=== PATIENT | female | born 1990 | race Caucasian/White ===

== ENCOUNTER 2019-08-28 10:58 | Emergency (ER) | payer BC ==
--- OUTSIDE RECORDS SUMMARY | 2019-08-28 11:02 | XMS REPORT ---
:1990 [facility] Address [address] [place] [address] Care Team Providers Name Role Phone Unavailable Unavailable Unavailable Payers Payer Name Policy Type Policy Number Effective Date Expiration Date Problems This patient has no known problems. Allergies, Adverse Reactions, Alerts Allergy Name Allergy Status Severity Reaction(s) Onset Inactive Treating Comments Type Date Date Clinician amoxicillin DA Active [place] 2016-08 00:00:0 0 Medications This patient has no known medications. Results Test Description Test Time Test Comments Text Results Atomic Results Result Comments HCG SERUM 2019-04-11 19:48:00 Test Item Value Reference Range Comments HCG SERUM (test code=HCG) 2458 INTERPRETATION:VALUES BETWEEN 15-20 milliInternational units/mL NEED TO BERETESTED WITHIN 48 HOURS. All units for these ranges are in milliInternationalunits/mL0-1 WK AFTER CONCEPTION 0-50 1-2 WKS AFTER CONCEPTION 40-3002-3 WKS AFTER CONCEPTION 100-1,0003-4 WKS AFTER CONCEPTION 500-6,0001-2 MONTHS AFTER CONCEPTION 5,000-200,0002-3 MONTHS AFTER CONCEPTION 10,000-100,0002ND TRIMESTER 3,000-50,0003RD TRIMESTER 1,000-50,000 SPECIMENS WITH AN HCG LEVEL FROM 0-6 milliInternationalunits/mL SHOULD BE CONSIDERED NEGATIVE BLOOD UREA [id number] 19:31:00 Test Item Value Reference Range Comments BLOOD UREA NITROGEN (test code=BUN) 9 mg/dL 7-18 [id number] 19:31:00 Test Item Value Reference Range Comments CREATININE (test code=CREAT) 0.8 mg/dL 0.5-1.0 [id number] 19:31:00 Test Item Value Reference Range Comments SGOT/AST (test code=AST) 77 units/L 15-37 [id number] 19:31:00 Test Item Value Reference Range Comments SGPT/ALT (test code=ALT) 83 units/L 12-78 CBC W/AUTO [id number] 18:17:00 Test Item Value Reference Range Comments WHITE BLOOD CELL (test code=WBC) 7.0 K/mm3 6.6-12.1 RED BLOOD CELL (test code=RBC) 4.85 M/mm3 3.45-5.01 HEMOGLOBIN (test code=HGB) 14.9 g/dL 10.7-13.9 HEMATOCRIT (test code=HCT) 44.1 % 32.1-42.1 MEAN CELL VOLUME (test code=MCV) 91 fL 84.1-94.8 MEAN CELL HGB (test code=MCH) 30.7 pg 27-35 MEAN CELL HGB CONCETRATION (test code=MCHC) 33.8 gm/dL 32.2-34.1 RED CELL DISTRIBUTION WIDTH (test code=RDW) 12.9 % 12.4-16.5 PLATELET COUNT (test code=PLT) 208 K/mm3 133-385 MEAN PLATELET VOLUME (test code=MPV) 10.3 fl 9.1-12.7 NEUTROPHIL % (test code=NT%) 64.2 % 56.5-79.4 LYMPHOCYTE % (test code=LY%) 27.1 % 14.3-34.3 MONOCYTE % (test code=MO%) 7.5 % 5.1-10.4 EOSINOPHIL % (test code=EO%) 0.4 % 0.1-3.0 BASOPHIL % (test code=BA%) 0.4 % 0.1-1.0 NEUTROPHIL # (test code=NT#) 4.5 K/mm3 LYMPHOCYTE # (test code=LY#) 1.9 K/mm3 MONOCYTE # (test code=MO#) 0.5 K/mm3 EOSINOPHIL # (test code=EO#) 0.03 K/mm3 BASOPHIL # (test code=BA#) 0.0 K/mm3 RBC MORPHOLOGY REQUIRED (test code=RBCM) NORMAL NORMAL PLATELET MORPHOLOGY REQUIRED (test code=PLTMR) NORMAL NORMAL - US PREG EVAL 1ST [id number] 12:02:00 Patient Name: STONE JORDAN Unit No: [id number] EXAMS: CPT CODE: [id number] US PREG EVAL 1ST TRIMTR 35857 EXAMINATION: 1st trimester pelvic ultrasound 04/05/2019. CLINICAL HISTORY: , rising beta hCG, concern for ectopic. COMPARISON: None. FINDINGS: Transabdominal and transvaginal pelvic ultrasound was performed. The uterus measures 70 x 35 x 42 mm. The endometrium measures 12 mm in AP diameter. Within the endometrium, there is a 7 x 6 x 6 mm anechoic structure which may represent a gestational sac. However, there is no evidence of yolk sac or embryo for confirmation. No uterine leiomyomata are evident. The ovaries are within normal limitsin size and sonographic appearance. The right ovary measures 23 x 13 x 18 mm and the left ovary measures 22 x 16 x 19 mm. There is a left ovarian corpus luteum which measures 13 x 10 x 9 mm.There is no evidence of extraovarian adnexal mass. No free fluid is present in the pelvis.IMPRESSION: 1. 6 mm possible gestational sac in the endometrium. However, there is no evidence of yolk sac or embryo for confirmation. The appearance is discordant from the patient's menstrual dates of 8 weeks 5 days. There is no sonographic evidence of ectopic gestation. Correlation with beta-hCG levels is recommended with further follow-up/management as clinically indicated. at 1202 Reported and signed by: Brigette Castillo MD CC: Elvia Vela MD Technologist: Sarahi Mir RDMS Probe: Trnscrbd D/ (1202) Brennon Orig Print D/T: S: 04/05/2019 (1205) [facility] NAME: STONE JORDAN Radiology Department PHYS: Nkechi Miranda [address] : 1990 AGE: 28 SEX: F [place], [place] [address] LOC: AishwaryaRAD PHONE #: [phone] EXAM DATE: 04/05/2019 STATUS: REG CLI FAX #: [phone] RAD NO: Page 1 Signed Report Patient Name: STONE JORDAN Unit No: [id number] EXAMS: CPT CODE: [id number] US PREG EVAL 1ST TRIMTR 42094 < Continued> [facility] NAME: STONE JORDAN Radiology Department PHYS: Nkechi Miranda [address] : 1990 AGE: 28 SEX: [place] [address] LOC: AishwaryaRAD PHONE #: [phone] EXAM DATE: 04/05/2019 STATUS: REG CLI FAX #: [phone] RAD NO: Page 2 Signed Report- US PREG UT [id number] 12:02:00 Patient Name: STONE JORDAN Unit No: [id number] EXAMS: CPT CODE: [id number] US PREG UT TRANSVAGINAL 23019 EXAMINATION: 1st trimester pelvic ultrasound 04/05/2019. CLINICAL HISTORY: , rising beta hCG, concern for ectopic. COMPARISON: None. FINDINGS: Transabdominal and transvaginal pelvic ultrasound was performed. The uterus measures 70 x 35 x 42 mm. The endometrium measures 12 mm in AP diameter. Within the endometrium, there is a 7 x 6 x 6 mm anechoic structure which may represent a gestational sac. However, there is no evidence of yolk sac or embryo for confirmation. No uterine leiomyomata are evident. The ovaries are within normal limitsin size and sonographic appearance. The right ovary measures 23 x 13 x 18 mm and the left ovary measures 22 x 16 x 19 mm. There is a left ovarian corpus luteum which measures 13 x 10 x 9 mm.There is no evidence of extraovarian adnexal mass. No free fluid is present in the pelvis.IMPRESSION: 1. 6 mm possible gestational sac in the endometrium. However, there is no evidence of yolk sac or embryo for confirmation. The appearance is discordant from the patient's menstrual dates of 8 weeks 5 days. There is no sonographic evidence of ectopic gestation. Correlation with beta-hCG levels is recommended with further follow-up/management as clinically indicated. at 1202 Reported and signed by: Brigette Castillo MD CC: Elvia Vela MD Technologist: Sarahi Mir, [facility] Probe: [id number] Trnscrbd D/ (1202) [email or web address] Orig Print D/T: S: 04/05/2019 (1205) [facility] NAME: STONE JORDAN Radiology Department PHYS: Nkechi Miranda [address] : 1990 AGE: 28 SEX: F [place] [address] LOC: AishwaryaRAD PHONE #: [phone] EXAM DATE: 04/05/2019 STATUS: REG CLI FAX #: [phone] RAD NO: Page 1 Signed Report Patient Name: STONE JORDAN Unit No: [id number] EXAMS: CPT CODE: [id number] PREG UT TRANSVAGINAL 50912 < Continued> [facility] NAME: JULIANSTONE Radiology Department PHYS: Nkechi Miranda [address] : 1990 AGE: 28 SEX: F [place] [address] LOC: [place].RAD PHONE #: [phone] EXAM DATE: 04/05/2019 STATUS: REG CLI FAX #: [phone] RAD NO: Page 2 Signed Report
[2019-08-28] MEDS ORDERED: LORAZEPAM 1 MG TABLET ONE (11:36)
[2019-08-28 11:39] LABS: Absolute Lymphocytes (CBC) 1.7 K/uL (0.7-4.9); Basophils % 0.2 % (0-1.3); Hematocrit 44.1 % (36.0-45.0); Lymphocytes % 27.5 % (15.3-44.8); MPV 8.5 fL (7.6-11.3); RBC Red Blood Cell Count 4.63 M/uL (3.86-4.86)
[2019-08-28 11:44] LABS: Protime INR 0.97
--- NOTE | 2019-08-28 11:50 | RAD REPORT ---
EXAM DESCRIPTION: [place] Single View08/28/2019 11:39 am CLINICAL HISTORY: Chest pain COMPARISON: none FINDINGS: The lungs appear clear of acute infiltrate. The heart is normal size IMPRESSION: No acute abnormalities displayed
[2019-08-28 12:06] LABS: ALT/SGPT 69 U/L (12-78); AST/SGOT 102 U/L (15-37); Albumin 4.6 g/dL (3.4-5.0); Alkaline Phosphatase 69 U/L (45-117); BUN Blood Urea Nitrogen 8 mg/dL (7-18); Bicarbonate 24 mmol/L (21-32); Bilirubin Direct 0.2 mg/dL (0-0.2); Bilirubin Total 0.6 mg/dL (0.2-1.0); Glucose Level 89 mg/dL (74-106); NT PRO-BNP 33 pg/mL (<125); Potassium 3.4 mmol/L (3.5-5.1); Protein, Total 8.2 g/dL (6.4-8.2); Sodium Level 138 mmol/L (136-145); Troponin (Emerg Dept Use Only) < 0.02 ng/mL (0.0-0.045)
[2019-08-28 12:08] LABS: Magnesium 1.3 mg/dL (1.8-2.4)
[2019-08-28] MEDS ORDERED: HYDROCODONE/APAP 7.5/325 MG TAB ONE (12:18)
[2019-08-28 13:01] LABS: Urine Blood NEGATIVE (NEG); Urine Glucose NEGATIVE (NEG); Urine Protein NEGATIVE (NEG); Urine Specific Gravity 1.015 (1.005-1.030)
--- NOTE | 2019-08-28 14:52 | EKG ---
Test Date: 2019-08-28 Test Time: 11:13:57 Transmitter Engineer: JOSE J MEASUREMENT RESULTS: Intervals: Rate: 81 CT: 144 QRSD: 82 QT: 406 QTc: 471 [place]: P: 54 CT: 144 QRS: -26 T: 30 INTERPRETIVE STATEMENTS: Normal sinus rhythm Possible Anterior infarct, age undetermined ST & T wave abnormality, consider lateral ischemia Abnormal ECG No previous ECG available for comparison Electronically Signed On 08-28-19 14:51:31 TRAVEL REGISTERED NURSE ONCOLOGY by Brandon Doyle
--- NOTE | 2019-08-28 16:15 | ER ---
Nurse's Notes [facility] Name: Dorothea Aguilar Age: 28 yrs Sex: Female : 1990 Arrival Date: 08/28/2019 Time: 10:59 Bed 15 Private MD: Diagnosis: Chest pain, unspecified Presentation: 08/28 11:08 Presenting complaint: Patient states: Sudden onset of CP, SOB and shakiness just prior ss to arrival. Pt reports she was feeling fine this morning. Began taking Cefuroxime 3 days ago for UTI. Transition of care: patient was not received from another setting of care. Onset of symptoms was August 28, 2019. Risk Assessment: Do you want to hurt yourself or someone else? Patient reports no desire to harm self or others. Initial Sepsis Screen: Does the patient meet any 2 criteria? No. Patient's initial sepsis screen is negative. Does the patient have a suspected source of infection? No. Patient's initial sepsis screen is negative. Care prior to arrival: None. 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 - Social history:: Smoking status: Patient denies any tobacco usage or history of. Patient/guardian denies using alcohol, street drugs, The patient lives with family. - Ebola Screening: : Patient denies exposure to infectious person Patient denies travel to an Ebola-affected area in the 21 days before illness onset. - Family history:: not pertinent. - Hospitalizations: : No recent hospitalization is reported. Screenin:15 Abuse screen: Denies threats or abuse. Denies injuries from another. Nutritional ca1 screening: No deficits noted. Tuberculosis screening: No symptoms or risk factors identified. Fall Risk IV access (20 points). Assessment: 11:15 General: Appears in no apparent distress. comfortable, Behavior is calm, cooperative, ca1 appropriate for age. Pain: Complains of pain in anterior aspect of left upper chest and mid-sternal area Pain does not radiate. Pain currently is 6 out of 10 on a pain scale. Quality of pain is described as pressure, Pain began 30 min ago. Is continuous. Neuro: Level of Consciousness is awake, alert, obeys commands, Oriented to person, place, time, situation, Appropriate for age. Cardiovascular: Heart tones S1 S2 present Capillary refill < 3 seconds Rhythm is sinus rhythm. Cardiovascular: Reports lightheadedness. Respiratory: Reports shortness of breath Airway is patent Respiratory effort is even, unlabored, Respiratory pattern is regular, symmetrical, Breath sounds are clear bilaterally. Denies cough. GI: Abdomen is flat, non-distended, Bowel sounds present X 4 quads. Abd is soft and non tender X 4 quads. : No deficits noted. No signs and/or symptoms were reported regarding the genitourinary system. EENT: No deficits noted. No signs and/or symptoms were reported regarding the EENT system. Derm: Skin is intact, is healthy with good turgor, Skin is pink, warm \T\ dry. Musculoskeletal: Circulation, motion, and sensation intact. Capillary refill < 3 seconds, Range of motion: intact in all extremities. 12:15 Reassessment: Patient appears in no apparent distress at this time. No changes from ca1 previously documented assessment. Patient and/or family updated on plan of care and expected duration. Pain level reassessed. Patient is alert, oriented x 3, equal unlabored respirations, skin warm/dry/pink. 12:51 Reassessment: Patient appears in no apparent distress at this time. Patient and/or ca1 family updated on plan of care and expected duration. Pain level reassessed. Patient is alert, oriented x 3, equal unlabored respirations, skin warm/dry/pink. For repeat trop and EKG at 1530 Patient states symptoms have improved. 13:52 Reassessment: Patient appears in no apparent distress at this time. Patient is alert, ca1 oriented x 3, equal unlabored respirations, skin warm/dry/pink. 14:48 Reassessment: Patient appears in no apparent distress at this time. Patient is alert, ca1 oriented x 3, equal unlabored respirations, skin warm/dry/pink. 15:50 Reassessment: Patient appears in no apparent distress at this time. Patient is alert, ca1 oriented x 3, equal unlabored respirations, skin warm/dry/pink. Vital Signs: 11:13 BP 149 / 109; Pulse 83; Resp 16; Temp 97.6(TE); Pulse Ox 100% on R/A; Weight 62.14 kg; ss Height 5 ft. 2 in. (157.48 cm); Pain 5/10; 12:51 BP 142 / 100; Pulse 84; Resp 17; Pulse Ox 100% on R/A; ca1 13:45 BP 144 / 109; Pulse 63; Resp 14 S; Pulse Ox 100% on R/A; ca1 14:48 BP 111 / 84; Pulse 80; Resp 14 S; Pulse Ox 99% on R/A; ca1 15:50 BP 122 / 94; Pulse 89; Resp 17 S; Pulse Ox 100% on R/A; ca1 11:13 Body Mass Index 25.06 (62.14 kg, 157.48 cm) ss ED Course: 10:59 Patient arrived in ED. ds1 11:02 Abeba Starr, TAB is Primary Nurse. ca1 11:02 Arpita Celis MD is Attending Physician. ma2 11:10 Triage completed. ss 11:13 Arm band placed on right wrist. ss 11:15 Patient has correct armband on for positive identification. Placed in gown. Bed in low ca1 position. Call light in reach. Side rails up X 1. quality assurance monitor final on. Pulse ox on. NIBP on. Warm blanket given. 11:22 No provider procedures requiring assistance completed. Initial lab(s) drawn, by me, ca1 sent to lab. Inserted saline lock: 22 gauge in right antecubital area, using aseptic technique. Blood collected. Patient maintains SpO2 saturation greater than 95% on room air. 11:29 EKG done, by repair technician. reviewed by Arpita Celis MD. at1 11:39 XRAY Chest (1 view) In Process Unspecified. EDMS 15:34 Repeat lab(s) drawn. by me, sent to lab. ca1 15:48 EKG done, by repair technician. reviewed by Arpita Celis MD. at1 16:34 IV discontinued, intact, bleeding controlled, No redness/swelling at site. Pressure ca1 dressing applied. Administered Medications: 11:35 Drug: Ativan 1 mg Route: PO; ca1 12:13 Follow up: Response: No adverse reaction; Anxiety decreased ca1 12:05 Drug: [place] (7.5 mg-325 mg) 1 tabs {Note: RASS - 0.} Route: PO; ca1 08/29 13:00 Follow up: Response: No adverse reaction; Pain is decreased; RASS: Alert and Calm (0) ca1 08/28 12:22 Not Given (Duplicate Order): [place] (7.5 mg-325 mg) 2 tabs PO once; RASS on ADMIN: ca1 Combtv4, Very Agttd3, Agttd2, Rstlss1, AlertClm0, Drwsy-1, Lt Sdtn-2, Mod Sdtn-3, Dp Sdtn-4, UnArsble-5 Outcome: 16:13 Discharge ordered by MD. lomax 16:34 Discharged to home ambulatory, with significant other. ca1 16:34 Condition: stable 16:34 Discharge instructions given to patient, Instructed on discharge instructions, follow up and referral plans. no drinking with medication, no driving heavy equipment, medication usage, Demonstrated understanding of instructions, follow-up care, medications, Prescriptions given X 1. 16:35 Patient left the ED. ca1 Signatures: Dispatcher [employer] [facility] Center[facility]am[facility] ds1 Ceci Montano RN RN ss Malika Mcpherson, quantitative consultant EKG Tat1 Arpita Celis MD MD ma2 Abeba Starr RN RN ca1 Corrections: (The following items were deleted from the chart) 12: 12:05 [place] (7.5 mg-325 mg) 2 tabs PO ca1 ca1
--- NOTE | 2019-08-28 16:15 | EDPHYS ---
Physician Documentation [facility] Name: Dorothea Aguilar Age: 28 yrs Sex: Female : 1990 Arrival Date: 08/28/2019 Time: 10:59 Bed 15 Private MD: ED Physician Arpita Celis HPI: 08/28 13:05 This 28 yrs old Female presents to ER via Ambulatory with complaints of Chest ma2 Pain. 13:05 The patient or guardian reports chest pain that is located primarily in the substernal ma2 area. The pain does not radiate. Associated signs and symptoms: Pertinent negatives: abdominal pain, dizziness, lower extremity pain, lightheadedness. The chest pain is described as a heaviness. Severity of pain: At its worst the pain was moderate in the emergency department the pain is unchanged. The patient has not experienced similar symptoms in the past. 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 - Social history:: Smoking status: Patient denies any tobacco usage or history of. Patient/guardian denies using alcohol, street drugs, The patient lives with family. - Ebola Screening: : Patient denies exposure to infectious person Patient denies travel to an Ebola-affected area in the 21 days before illness onset. - Family history:: not pertinent. - Hospitalizations: : No recent hospitalization is reported. ROS: 13:05 Constitutional: Negative for fever, chills, and weight loss. ma2 13:05 All other systems are negative. Exam: 13:05 Constitutional: This is a well developed, well nourished patient who is awake, alert, ma2 and in no acute distress. Chest/axilla: Normal chest wall appearance and motion. Nontender with no deformity. No lesions are appreciated. Cardiovascular: Regular rate and rhythm with a normal S1 and S2. No gallops, murmurs, or rubs. Normal PMI, no JVD. No pulse deficits. Respiratory: Lungs have equal breath sounds bilaterally, clear to auscultation and percussion. No rales, rhonchi or wheezes noted. No increased work of breathing, no retractions or nasal flaring. Abdomen/GI: Soft, non-tender, with normal bowel sounds. No distension or tympany. No guarding or rebound. No evidence of tenderness throughout. Back: No spinal tenderness. No costovertebral tenderness. Full range of motion. Skin: Warm, dry with normal turgor. Normal color with no rashes, no lesions, and no evidence of cellulitis. MS/ Extremity: Pulses equal, no cyanosis. Neurovascular intact. Full, normal range of motion. Neuro: Awake and alert, GCS 15, oriented to person, place, time, and situation. Cranial nerves II-XII grossly intact. Motor strength 5/5 in all extremities. Sensory grossly intact. Cerebellar exam normal. Normal gait. Vital Signs: 11:13 BP 149 / 109; Pulse 83; Resp 16; Temp 97.6(TE); Pulse Ox 100% on R/A; Weight 62.14 kg; ss Height 5 ft. 2 in. (157.48 cm); Pain 5/10; 12:51 BP 142 / 100; Pulse 84; Resp 17; Pulse Ox 100% on R/A; ca1 13:45 BP 144 / 109; Pulse 63; Resp 14 S; Pulse Ox 100% on R/A; ca1 14:48 BP 111 / 84; Pulse 80; Resp 14 S; Pulse Ox 99% on R/A; ca1 15:50 BP 122 / 94; Pulse 89; Resp 17 S; Pulse Ox 100% on R/A; ca1 11:13 Body Mass Index 25.06 (62.14 kg, 157.48 cm) MDM: 11:02 Patient medically screened. ma2 13:05 Differential diagnosis: chest wall pain, gastritis, gastroesophageal reflux disease ma2 (GERD), unstable angina. MARKOS Risk Score: TOTAL SCORE = 0. Data reviewed: vital signs, nurses notes. Counseling: I had a detailed discussion with the patient and/or guardian regarding: the historical points, exam findings, and any diagnostic results supporting the discharge/admit diagnosis, the presence of at least one elevated blood pressure reading (>120/80) during this emergency department visit, the need for outpatient follow up. Response to treatment: the patient's symptoms have markedly improved after treatment. 08/28 11:02 Order name: Basic Metabolic Panel; Complete Time: 12:12 ms2 08/28 11:02 Order name: CBC with Diff; Complete Time: 12:08 ms08/28 11:02 Order name: LFT's; Complete Time: 12:12 ms08/28 11:02 Order name: Magnesium; Complete Time: 12:12 ms2 08/28 11:02 Order name: NT PRO-BNP; Complete Time: 12:12 ms08/28 11:02 Order name: PT-INR; Complete Time: 12:08 ms2 08/28 11:02 Order name: Troponin (emerg Dept Use Only); Complete Time: 12:12 ma2 08/28 11:02 Order name: XRAY Chest (1 view); Complete Time: 12:08 [facility] 08/28 12:43 Order name: Troponin (emerg Dept Use Only): DUE 1530; Complete Time: 16:12 bp 08/28 12:57 Order name: Urine Dipstick--Ancillary (enter results); Complete Time: 13:04 bd 08/28 12:57 Order name: Urine --Ancillary (enter results); Complete Time: 13:04 bd 08/28 11:02 Order name: EKG; Complete Time: 11:04 ms2 08/28 11:02 Order name: Cardiac monitoring; Complete Time: 11:24 ms2 08/28 11:02 Order name: EKG - Nurse/Tech; Complete Time: 11:29 08/28 11:02 Order name: IV Saline Lock; Complete Time: 11:24 ms2 08/28 11:02 Order name: Labs collected and sent; Complete Time: 11:24 ms2 08/28 11:02 Order name: O2 Per Protocol; Complete Time: 11:24 ms2 08/28 11:02 Order name: O2 Sat Monitoring; Complete Time: 11:24 ms2 08/28 12:43 Order name: EKG: DUE 1530; Complete Time: 12:43 bp 08/28 12:43 Order name: EKG - Nurse/Tech: DUE 1530; Complete Time: 15:44 bp Administered Medications: 11:35 Drug: Ativan 1 mg Route: PO; ca1 12:13 Follow up: Response: No adverse reaction; Anxiety decreased ca1 12:05 Drug: [place] (7.5 mg-325 mg) 1 tabs {Note: RASS - 0.} Route: PO; ca1 08/29 13:00 Follow up: Response: No adverse reaction; Pain is decreased; RASS: Alert and Calm (0) ca1 08/28 12:22 Not Given (Duplicate Order): [place] (7.5 mg-325 mg) 2 tabs PO once; RASS on ADMIN: ca1 Combtv4, Very Agttd3, Agttd2, Rstlss1, AlertClm0, Drwsy-1, Lt Sdtn-2, Mod Sdtn-3, Dp Sdtn-4, UnArsble-5 Disposition: 08/28/19 16:13 Discharged to Home. Impression: Chest pain, unspecified. - Condition is Stable. - Prescriptions for Tylenol- Codeine #3 300-30 mg Oral Tablet - take 2 tablet by ORAL route every 6 hours As needed; 30 tablet. - Medication Reconciliation Form, Thank You Letter, Antibiotic Education, Prescription Opioid Use, Work release form form. - Follow up: Private Physician; When: Tomorrow; Reason: Continuance of care. Signatures: Dispatcher [employer] EDMS Ceci Montano RN RN ss Ron Moreland RN RN bp Arpita Celis MD MD [facility] Abeba Starr RN RN ca1 Corrections: (The following items were deleted from the chart) 12:44 12:43 TROPONIN (EMERG DEPT USE ONLY)+C.LAB.BRZ ordered. EDNH EDMS 14:35 14:32 EKG - Nurse/Tech ordered. [email or web address] 16:35 16:13 08/28/2019 16:13 Discharged to Home. Impression: Chest pain, unspecified. ca1 Condition is Stable. Prescriptions for Tylenol-Codeine #3 300-30 mg Oral Tablet - take 2 tablet by ORAL route every 6 hours As needed; 30 tablet. and Forms are Medication Reconciliation Form, Thank You Letter, Antibiotic Education, Prescription Opioid Use. Follow up: Private Physician; When: Tomorrow; Reason: Continuance of care. dami
--- NOTE | 2019-08-28 16:37 | EKG ---
Test Date: 2019-08-28 Test Time: 15:40:45 Emergency Department Director: JOSE J MEASUREMENT RESULTS: Intervals: Rate: 78 WI: 156 QRSD: 84 QT: 374 QTc: 426 [place]: P: 48 WI: 156 QRS: -45 T: 1 INTERPRETIVE STATEMENTS: Normal sinus rhythm Left axis deviation Anterior infarct, age undetermined Abnormal ECG Compared to ECG 08/28/2019 11:13:57 Left-axis deviation now present ST (T wave) deviation no longer present Possible ischemia no longer present Myocardial infarct finding still present Electronically Signed On 08-28-19 16:35:59 SURGICAL RESIDENT by Brandon Doyle
[2019-08-28 18:33] VITALS: TEMP 97.6
[2019-08-28 18:38] VITALS: BP 122/94; O2SAT 100
== END 2019-08-28 16:35 | disposition home or self-care (01) ==
LOC: ER 10:58
DX: R07.9 Chest pain, unspecified (principal); I10 Essential (primary) hypertension; Z88.1 Allergy status to other antibiotic agents
CPT/HCPCS: 36415; 71045; 80048; 80076; 81003; 81025; 83735; 83880; 84484; 85025; 85610; 93005; 99285

== ENCOUNTER 2019-09-25 13:40 | Emergency (ER) | payer BC ==
--- OUTSIDE RECORDS SUMMARY | 2019-09-25 13:42 | XMS REPORT ---
:1990 Author Organization [facility] Address [address] [place] [address] Care Team Providers Name Role Phone Unavailable Unavailable Unavailable Payers Payer Name Policy Type Policy Number Effective Date Expiration Date Problems This patient has no known problems. Allergies, Adverse Reactions, Alerts Allergy Name Allergy Status Severity Reaction(s) Onset Inactive Treating Comments Type Date Date Clinician amoxicillin DA Active AK 2016-08 00:00:0 0 Medications This patient has [...] milliInternationalunits/mL SHOULD BE CONSIDERED NEGATIVE BLOOD UREA [id number] 19:31:00 Test Item Value Reference Range Comments BLOOD UREA NITROGEN (test code=BUN) 9 mg/dL 7-18 [id number] 19:31:00 Test Item Value Reference Range Comments CREATININE (test code=CREAT) 0.8 mg/dL 0.5-1.0 [id number] 19:31:00 Test Item Value Reference Range Comments SGOT/AST (test code=AST) 77 units/L 15-37 [id number] 19:31:00 Test Item Value Reference Range Comments SGPT/ALT (test code=ALT) 83 units/L 12-78 CBC W/AUTO [id number] 18:17:00 Test Item Value Reference Range Comments [...] NORMAL NORMAL - US PREG EVAL 1ST [id number] 12:02:00 Patient Name: STONE JORDAN Unit No: [id number] EXAMS: CPT CODE: [id number] US PREG EVAL 1ST TRIMTR 01069 EXAMINATION: 1st trimester pelvic ultrasound 04/05/2019. CLINICAL [...] Sarahi Mir RDMS Probe: Trnscrbd D/ (1202) [facility] [place] [facility] [place] D/T: S: 04/05/2019 (1205) [facility] NAME: STONE JORDAN Radiology Department PHYS: Nkechi Miranda [address] : 1990 AGE: 28 SEX: F [place], [place] [address] LOC: AishwaryaRAD PHONE #: [phone] EXAM DATE: 04/05/2019 STATUS: REG CLI FAX #: [phone] RAD NO: Page 1 Signed Report Patient Name: STONE JORDAN Unit No: [id number] EXAMS: CPT CODE: [id number] US PREG EVAL 1ST TRIMTR 86550 < Continued> [facility] NAME: STONE JORDAN Radiology Department PHYS: Nkechi Miranda [address] : 1990 AGE: 28 SEX: [place] [address] LOC: AishwaryaRAD PHONE #: [phone] EXAM DATE: 04/05/2019 STATUS: REG CLI FAX #: [phone] RAD NO: Page 2 Signed Report- US PREG UT [id number] 12:02:00 Patient Name: STONE JORDAN Unit No: [id number] EXAMS: CPT CODE: [id number] US PREG UT TRANSVAGINAL 49912 EXAMINATION: 1st trimester pelvic ultrasound 04/05/2019. CLINICAL [...] CC: Elvia Vela MD Technologist: Sarahi Mir, [facility] Probe: [id number] Trnscrbd D/ (1202) ConyWSC Orig Print D/T: S: 04/05/2019 (1205) [facility] NAME: STONE JORDAN Radiology Department PHYS: Nkechi Miranda [address] : 1990 AGE: 28 SEX: F [place] [address] LOC: AishwaryaRAD PHONE #: [phone] EXAM DATE: 04/05/2019 STATUS: REG CLI FAX #: [phone] RAD NO: Page 1 Signed Report Patient Name: STONE JORDAN Unit No: [id number] EXAMS: CPT CODE: [id number] [facility] TRANSVAGINAL [address] < Continued> [facility] NAME: JORDANSTONE Radiology Department PHYS: Nkechi Miranda [address] : 1990 AGE: 28 SEX: F [place] [address] LOC: [place].RAD PHONE #: [phone] EXAM DATE: 04/05/2019 STATUS: REG CLI FAX #: [phone] RAD NO: Page 2 Signed Report
[2019-09-25] MEDS ORDERED: NA CHLORIDE 0.9% 1,000 ML ONE (14:12)
[2019-09-25] MEDS ORDERED: MECLIZINE HCL 12.5 MG TAB ONE (14:12)
[2019-09-25 14:30] LABS: Absolute Lymphocytes (CBC) 1.3 K/uL (0.7-4.9); Basophils % 0.2 % (0-1.3); Hematocrit 42.3 % (36.0-45.0); Lymphocytes % 20.2 % (15.3-44.8); MPV 8.3 fL (7.6-11.3); RBC Red Blood Cell Count 4.41 M/uL (3.86-4.86)
[2019-09-25 14:39] LABS: ALT/SGPT 49 U/L (12-78); AST/SGOT 62 U/L (15-37); Alkaline Phosphatase 70 U/L (45-117); BUN Blood Urea Nitrogen 9 mg/dL (7-18); Bicarbonate 22 mmol/L (21-32); Bilirubin Direct 0.2 mg/dL (0-0.2); Bilirubin Total 0.6 mg/dL (0.2-1.0); Glucose Level 76 mg/dL (74-106); Lipase 85 U/L (73-393); Potassium 3.7 mmol/L (3.5-5.1); Protein, Total 7.6 g/dL (6.4-8.2); Sodium Level 137 mmol/L (136-145)
[2019-09-25] MEDS ORDERED: LORAZEPAM 1 MG TABLET ONE (15:51)
--- NOTE | 2019-09-25 16:11 | EDPHYS ---
Physician Documentation [facility] Name: Dorothea Aguilar Age: 28 yrs Sex: Female : 1990 Arrival Date: 09/25/2019 Time: 13:42 Bed 23 Private MD: ED Physician Aj Ocasio HPI: 09/25 21:18 This 28 yrs old Female presents to ER via EMS with complaints of Dizziness. tw4 21:18 The patient presents with dizziness, sense of spinning. Onset: The symptoms/episode tw4 began/occurred today. Context: occurred at home. Modifying factors: The symptoms are alleviated by nothing, the symptoms are aggravated by nothing. Severity of symptoms: At their worst the symptoms were moderate in the emergency department the symptoms are unchanged. 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 - Coronavirus screen:: The patient has NOT traveled to [place] in the past 14 days. - Social history:: Smoking status: Patient denies any tobacco usage or history of. - Ebola Screening: : Patient negative for fever greater than or equal to 101.5 degrees Fahrenheit, and additional compatible Ebola Virus Disease symptoms. ROS: 21:18 Constitutional: Negative for fever, chills, and weight loss, Eyes: Negative for injury, tw4 pain, redness, and discharge, ENT: Negative for injury, pain, and discharge, Cardiovascular: Negative for chest pain, palpitations, and edema, Respiratory: Negative for shortness of breath, cough, wheezing, and pleuritic chest pain, Abdomen/GI: Negative for abdominal pain, nausea, vomiting, diarrhea, and constipation, Back: Negative for injury and pain, MS/Extremity: Negative for injury and deformity, Skin: Negative for injury, rash, and discoloration. 21:21 Neuro: Positive for dizziness, Negative for altered mental status, gait disturbance, tw4 headache, hearing loss, loss of consciousness, numbness, seizure activity, speech changes, syncope, near syncope, tingling, tinnitus, tremor. Exam: 21:18 Constitutional: This is a well developed, well nourished patient who is awake, alert, tw4 and in no acute distress. Head/Face: Normocephalic, atraumatic. Chest/axilla: Normal chest wall appearance and motion. Nontender with no deformity. No lesions are appreciated. Cardiovascular: Regular rate and rhythm with a normal S1 and S2. No gallops, murmurs, or rubs. Normal PMI, no JVD. No pulse deficits. Respiratory: Lungs have equal breath sounds bilaterally, clear to auscultation and percussion. No rales, rhonchi or wheezes noted. No increased work of breathing, no retractions or nasal flaring. Abdomen/GI: Soft, non-tender, with normal bowel sounds. No distension or tympany. No guarding or rebound. No evidence of tenderness throughout. Back: No spinal tenderness. No costovertebral tenderness. Full range of motion. MS/ Extremity: Pulses equal, no cyanosis. Neurovascular intact. Full, normal range of motion. 21:18 Neuro: Orientation: Vital Signs: 13:52 BP 144 / 96; Pulse 72; Resp 20; Pulse Ox 100% on R/A; Weight 61.23 kg; Height 5 ft. 2 vc in. (157.48 cm); Pain 0/10; 14:01 BP 137 / 91; Pulse 65; Resp 19; Pulse Ox 100% on R/A; vc 14:51 BP 135 / 100; Pulse 69; Resp 20; Pulse Ox 100% on R/A; vc 15:30 BP 130 / 99; Pulse 66; Resp 20; Pulse Ox 100% on R/A; vc 16:30 BP 131 / 96; Pulse 67; Resp 20; Pulse Ox 100% on R/A; vc 13:52 Body Mass Index 24.69 (61.23 kg, 157.48 cm) vc MDM: 13:43 Patient medically screened. tw4 21:21 Differential diagnosis: cardiac arrhythmia, CVA, generalized weakness, tw4 hyperventilation, hypovolemia, idiopathic dizziness, TIA, vertigo. Data reviewed: vital signs, nurses notes. Data interpreted: Pulse oximetry: Interpretation: normal. Counseling: I had a detailed discussion with the patient and/or guardian regarding: the historical points, exam findings, and any diagnostic results supporting the discharge/admit diagnosis. Special discussion: I discussed with the patient/guardian in detail that at this point there is no indication for admission to the hospital. It is understood, however, that if the symptoms persist or worsen the patient needs to return immediately for re-evaluation. 09/25 13:43 Order name: Basic Metabolic Panel [facility] 09/25 13:43 Order name: CBC with Diff [facility] 09/25 13:43 Order name: Creatinine for Radiology [facility] 09/25 13:43 Order name: Hepatic Function [facility] 09/25 13:43 Order name: Lipase [facility] 09/25 14:35 Order name: CBC with Automated Diff; Complete Time: 16:10 [facility]DC 09/25 13:43 Order name: IV Saline Lock; Complete Time: 14:19 [facility] 09/25 13:43 Order name: Labs collected and sent; Complete Time: 14:19 [facility] 09/25 14:39 Order name: Creatinine (Radiology Only) [facility] 09/25 14:41 Order name: Basic Metabolic Panel [facility] 09/25 14:41 Order name: Liver (Hepatic) Function [facility] 09/25 14:41 Order name: Lipase EDDC Administered Medications: 14:16 Drug: Meclizine 25 mg Route: PO; vc 15:16 Follow up: Response: No adverse reaction vc 14:16 Drug: NS 0.9% 1000 ml Route: IV; Rate: 1 bolus; Site: right antecubital; vc 15:16 Follow up: IV Status: Completed infusion; IV Intake: 1000ml vc Disposition: 09/25/19 16:10 Discharged to Home. Impression: Vertigo of central origin, unspecified ear. - Condition is Stable. - Discharge Instructions: Dizziness, Vertigo. - Prescriptions for Meclizine 25 mg Oral Tablet - take 1 tablet by ORAL route every 8 hours As needed; 30 tablet. Zofran 4 mg Oral Tablet - take 1 tablet by ORAL route every 12 hours As needed; 6 tablet. - Medication Reconciliation Form, Thank You Letter, Antibiotic Education, Prescription Opioid Use form. - Follow up: Private Physician; When: Upon discharge from the Emergency Department; Reason: If symptoms return, Recheck today's complaints, Continuance of care, Re-evaluation by your physician. - Problem is new. - Symptoms have improved. Signatures: Dispatcher [employer] [facility] Aj Ocasio MD MD tw4 Lorin Boggs, RN RN vc Corrections: (The following items were deleted from the chart) 16:41 16:10 09/25/2019 16:10 Discharged to Home. Impression: Vertigo of central origin, vc unspecified ear. Condition is Stable. Forms are Medication Reconciliation Form, Thank You Letter, Antibiotic Education, Prescription Opioid Use. Follow up: Private Physician; When: Upon discharge from the Emergency Department; Reason: If symptoms return, Recheck today's complaints, Continuance of care, Re-evaluation by your physician. Problem is new. Symptoms have improved. tw4
--- NOTE | 2019-09-25 16:11 | ER ---
Nurse's Notes [facility] Name: Dorothea Aguilar Age: 28 yrs Sex: Female : 1990 Arrival Date: 09/25/2019 Time: 13:42 Bed 23 Private MD: Diagnosis: Vertigo of central origin, unspecified ear Presentation: 09/25 13:43 Presenting complaint: Patient states: "I was here two weeks ago for chest tightness and vc dizziness. I followed up with a pulper and they said everything was fine. I asked my Dr. to change my blood pressure medicine and he said no that what I am on is the best for helping changes in blood pressure. They prescribed me some Zoloft thinking it is anxiety. I felt dizzy today and I can see two of everything. Presenting complaint: EMS states: Patient states she feels dizzy and light headed. She was at work when this happened and thought it was her blood pressure. She normally takes one metoprolol in the morning and today she took 2. Transition of care: patient was not received from another setting of care. Onset of symptoms was September 25, 2019. Risk Assessment: Do you want to hurt yourself or someone else? Patient reports no desire to harm self or others. Initial Sepsis Screen: Does the patient meet any 2 criteria? No. Patient's initial sepsis screen is negative. Does the patient have a suspected source of infection? No. Patient's initial sepsis screen is negative. Care prior to arrival: None. 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 - Coronavirus screen:: The patient has NOT traveled to [place] in the past 14 days. - Social history:: Smoking status: Patient denies any tobacco usage or history of. - Ebola Screening: : Patient negative for fever greater than or equal to 101.5 degrees Fahrenheit, and additional compatible Ebola Virus Disease symptoms. Screenin:00 Abuse screen: Denies threats or abuse. Nutritional screening: No deficits noted. vc Tuberculosis screening: No symptoms or risk factors identified. Fall Risk None identified. Assessment: 14:00 General: Appears in no apparent distress. comfortable, Behavior is cooperative, vc appropriate for age, anxious. Pain: Denies pain. Neuro: Level of Consciousness is awake, alert, obeys commands, Oriented to person, place, time, situation. Cardiovascular: Reports lightheadedness, Denies chest pain, Capillary refill < 3 seconds Patient's skin is warm and dry. Respiratory: Respiratory effort is even, unlabored, Respiratory pattern is regular, symmetrical. GI: No signs and/or symptoms were reported involving the gastrointestinal system. : No deficits noted. EENT: Reports blurred vision. Derm: No signs and/or symptoms reported regarding the dermatologic system. Musculoskeletal: Circulation, motion, and sensation intact. Range of motion: intact in all extremities. 15:00 Reassessment: Patient and/or family updated on plan of care and expected duration. Pain vc level reassessed. Patient is alert, oriented x 3, equal unlabored respirations, skin warm/dry/pink. Patient denies pain at this time. 16:00 Reassessment: Patient and/or family updated on plan of care and expected duration. Pain vc level reassessed. Patient is alert, oriented x 3, equal unlabored respirations, skin warm/dry/pink. Patient denies pain at this time. Patient states feeling better. Patient states symptoms have improved. Vital Signs: 13:52 BP 144 / 96; Pulse 72; Resp 20; Pulse Ox 100% on R/A; Weight 61.23 kg; Height 5 ft. 2 vc in. (157.48 cm); Pain 0/10; 14:01 BP 137 / 91; Pulse 65; Resp 19; Pulse Ox 100% on R/A; vc 14:51 BP 135 / 100; Pulse 69; Resp 20; Pulse Ox 100% on R/A; vc 15:30 BP 130 / 99; Pulse 66; Resp 20; Pulse Ox 100% on R/A; vc 16:30 BP 131 / 96; Pulse 67; Resp 20; Pulse Ox 100% on R/A; vc 13:52 Body Mass Index 24.69 (61.23 kg, 157.48 cm) vc ED Course: 13:42 Patient arrived in ED. vc 13:43 Aj Ocasio MD is Attending Physician. tw4 13:49 Triage completed. vc 13:56 Lorin Boggs, RN is Primary Nurse. vc 14:00 Arm band placed on left wrist. vc 14:00 Patient has correct armband on for positive identification. Placed in gown. Bed in low vc position. Call light in reach. Pulse ox on. NIBP on. 16:30 No provider procedures requiring assistance completed. IV discontinued, intact, vc bleeding controlled, No redness/swelling at site. Pressure dressing applied. Administered Medications: 14:16 Drug: Meclizine 25 mg Route: PO; vc 15:16 Follow up: Response: No adverse reaction vc 14:16 Drug: NS 0.9% 1000 ml Route: IV; Rate: 1 bolus; Site: right antecubital; vc 15:16 Follow up: IV Status: Completed infusion; IV Intake: 1000ml vc Intake: 15:16 IV: 1000ml; Total: 1000ml. vc Outcome: 16:10 Discharge ordered by . tw4 16:40 Discharged to home ambulatory. vc 16:40 Condition: good 16:40 Discharge instructions given to patient, family, Instructed on discharge instructions, follow up and referral plans. Demonstrated understanding of instructions, follow-up care. 16:41 Patient left the ED. vc Signatures: Aj Ocasio MD MD tw Lorin Boggs, RN RN vc
[2019-09-25 18:47] VITALS: BP 135/100; O2SAT 100
== END 2019-09-25 16:41 | disposition home or self-care (01) ==
LOC: ER 13:40
DX: H81.4 Vertigo of central origin (principal); Z88.1 Allergy status to other antibiotic agents; I10 Essential (primary) hypertension
CPT/HCPCS: 85025; 80048; 36415; 80076; 83690; 96360; 99284; J7030; J8597